=== PATIENT | female | born 1970 | race Caucasian/White ===

== ENCOUNTER 2017-10-23 12:59 | Emergency (ER) | payer BC, OTHER ==
[~2017-10-23] VITALS: Ht 167.6 cm; Wt 77.1 kg
[2017-10-23 13:02] VITALS: BP 133/87
== END 2017-10-23 13:42 | disposition home or self-care (01) ==
LOC: ER 13:05
DX: R51 Headache (principal); N89.8 Other specified noninflammatory disorders of vagina; Z88.1 Allergy status to other antibiotic agents; Z88.6 Allergy status to analgesic agent; Z98.890 Other specified postprocedural states
CPT/HCPCS: A4606; Z7610

== ENCOUNTER 2018-02-15 14:42 | Emergency (ER) | payer BC ==
[~2018-02-15] VITALS: Ht 167.6 cm; Wt 77.1 kg
[2018-02-15 14:42] VITALS: BP 110/73
[2018-02-15] MEDS ORDERED: HYDROCODONE/APAP 5/325MG 1 EACH TABLET PO ONE (16:00)
[2018-02-15] MEDS ORDERED: HYDROCODONE/APAP 5/325MG 1 EACH TABLET ONE (16:03)
== END 2018-02-15 17:17 | disposition home or self-care (01) ==
LOC: ER 14:43
DX: M62.838 Other muscle spasm (principal); G43.909 Migraine, unspecified, not intractable, without status migrainosus; Z98.890 Other specified postprocedural states; Z88.1 Allergy status to other antibiotic agents; Z88.6 Allergy status to analgesic agent
CPT/HCPCS: 72050; 99284; Z7610